=== PATIENT | male | born 1955 | race Caucasian/White ===

== ENCOUNTER 2024-08-08 12:09 | Emergency (ER) | payer MEDICARE, SELFPAY ==
[2024-08-08 12:13] VITALS: BP 161/57
--- NOTE | 2024-08-08 12:18 | ED.GENMED ---
History of Present Illness
General
Chief Complaint: Abdominal Pain
Time Seen by Provider: 08/08/24 12:17
History of Present Illness
History of Present Illness:
TIME OF INITIAL ENCOUNTER: 12:20 PM
HPI: Patient presents with left lower quadrant pain. He has had kidney stones in the past. The patient dropped his car off at a local car dealership and had some vague left lower quadrant pain at that time however since then, he had dramatically
lower quadrant/left flank pain. The pain apparently comes in waves. This feels somewhat similar to the time he had a kidney stone in the past. This been no fevers. Currently, his symptoms have improved. He did take an NSAID earlier in the day.
EXAM:
GENERAL: Well appearing in no distress
HEENT: Moist oral mucosa
CARDIOVASCULAR: No murmurs, normal heart rate, regular rhythm, No chest wall tenderness
PULMONARY: No respiratory distress, breath sounds are clear and equal
ABDOMEN: Soft with no peritoneal signs, minimal left lower quadrant tenderness, no significant CVA tenderness
NEUROLOGIC: Excellent strength all extremities, no coordination deficits
PSYCHIATRIC: Appropriate mental status, normal insight and judgement
EXTREMITIES: Nontender, no edema, moves all extremities equally
SKIN: No rash, no lesions
NUMBER AND COMPLEXITY OF PROBLEMS ADDRESSED AT THE ENCOUNTER
� Chronic conditions affecting care: Has had kidney stones in the past, mitral regurgitation
� Acute Exacerbation and/or Progression of Chronic Illness: This is an acute problem
� Differential Diagnosis includes: Ureteral stone/colic, diverticulitis, UTI/pyelonephritis
AMOUNT AND/OR COMPLEXITY OF DATA TO BE REVIEWED AND ANALYZED
� I performed an independent evaluation of and my interpretation is:
EKG:
CT: I personally viewed CT imaging and agree with radiologist interpretation that there is a 3 mm stone in the proximal left ureter associate with hydroureteronephrosis
X-rays:
Laboratory Studies: CBC unremarkable, chemistries unremarkable, urinalysis shows greater then 100 red cells per high-powered field
Other:
� Review of other/old records: No old records available for review in [facility]
� Clinical information was obtained by an independent historian: None needed
� Prescriptions/Medications Considered but not given:
� Further testing considered but not performed:
RISK OF COMPLICATIONS AND/OR MORBIDITY OR MORTALITY OF PATIENT MANAGEMENT
� Social determinants of health affecting care: Lives at home
� Discussion with other providers:
� Escalation of care including admission/observation vs risk of discharge considered: CT imaging shows a 3 mm stone in the proximal left ureter. The patient had been doing fairly well in the emergency department however at
approximately 1:45 PM just as I was going over his results, he had abrupt onset recurrence of his symptoms. He is now writhing in pain�will give Toradol, IV fluids, but he currently denies any nausea.
ANY OTHER UPDATES:
2:30 PM: The patient feels significantly improved and feels well enough to go home. Encouraged for him to follow-up with urology as an outpatient.
Phy Exam
Physical Exam
Physical Exam:
See HPI
Course
Orders/Labs/Results
Orders:
Orders
08/08/24 12:22
CT Abd/pel Without Iv Or Oral Urgent
Comment:
Reason For Exam: abrupt L abd/flank pain
08/08/24 12:29
Complete Blood Count/With Diff Urgent
Comprehensive Metabolic Panel Urgent
Urinalysis Reflex To Culture Urgent
Date Specimen was Collected: 08/08/24
Time Specimen was Collected: 12:26
Urine Microscopic Reflex Cult Urgent
08/08/24 13:48
0.9% Sodium Chloride 1000 ml [Nss] 1,000 ml IV BOLUS
Ketorolac [Toradol] 15 mg IV NOW STA
Abnormal Lab Results
08/08/24
12:29
Lymphocytes % 14.8 L %
(20.5-51.1)
BUN 25 H mg/dl
(9-20)
Glucose 108 H mg/dl
(70-99)
Total Bilirubin 2.1 H mg/dl
(0.2-1.3)
Urine Ketones 1+ A
(Negative)
Ur Occult Blood Reflex 4+ A
(Negative)
Urine RBC >100 A /HPF
(0-2)
08/08/24 12:29
08/08/24 12:29
Vital Signs
Initial and Last Documented VS:
Initial Vital Signs
Temp Pulse Resp BP Pulse Ox
36.4 C 52 16 161/57 99
08/08/24 12:13 08/08/24 12:13 08/08/24 12:13 08/08/24 12:13 08/08/24 12:13
Last Documented Vital Signs
Temp Pulse Resp BP Pulse Ox
36.4 C 52 16 143/36 94
08/08/24 12:13 08/08/24 12:13 08/08/24 12:13 08/08/24 14:00 08/08/24 14:45
*Critical Care Note
Total Time (30-74mins, 75-104mins- exclusive of procedures): Not Applicable
ED Attending Note
-
Portions of this chart may have been created with voice recognition software.� Occasional wrong word or��sound alike� substitutions may have occurred due to the inherent limitations of voice recognition software.
Discharge Plan
Departure
Patient Disposition: Home (Routine Discharge)
Date of Disposition: 08/08/24
Time of Disposition: 14:17
Patient with high blood pressure during this ER visit?: Yes
Discharge Problem:
Left ureteral stone
Instructions: Kidney Stones (DC)
Prescriptions:
New
oxycodone-acetaminophen [Percocet] 5-325 mg tablet
1 - 2 tab PO Q6HPRN PRN (Reason: pain) Qty: 14 0RF
ondansetron HCl 4 mg tablet
4 mg PO Q8H PRN (Reason: nausea and vomiting) Qty: 14 0RF
Referrals:
PRIVATE,PHYSICIAN [Family Provider] -
Galindo Rivera Jr., MD [Active] - Follow up in 2-3 days
Activity Restrictions/Additional Instructions:
You have a 3 mm stone in the upper portion of the left ureter. Based on the size, this should pass on its own. Currently, your kidney function is normal. Therefore you could continue taking [id number] ibuprofen/Advil/Motrin. I am sending a
prescription for narcotic analgesia to your pharmacy. If you do take the narcotic, consider taking something like MiraLAX to prevent constipation. The urinalysis shows blood in the urine but there is no sign of infection. CT also showed
diverticulosis at the sigmoid colon but no sign of diverticulitis (no sign of infection). I have given you the contact information for a local urologist to follow-up with, Dr. Rivera.
Interventions
Interventions:
*Risk Screen - Suicide Last Done: 08/08/24 12:13
*General Assessment Last Done: 08/08/24 12:13
*Neglect/Abuse Screening Last Done: 08/08/24 12:13
*ED COVID-19 Vaccine History Last Done: 08/08/24 12:13
*Nursing Disposition Last Done: 08/08/24 15:06
FE-Mwudxy-Rzzdivttlt Assessment Last Done: 08/08/24 12:31
Discharge Date and Time
Discharge Date/Time: 08/08/24 15:08
Print Language: IRAQI
[2024-08-08 12:22] VITALS: BMI 28.2
[2024-08-08 12:30] VITALS: BP 144/52
[2024-08-08 12:40] LABS: % Basophils 0.8 % (0-2); % Eosinophils 2.1 % (0-6); % Immature Granulocytes 0.4 % (0-0.5); % Lymphocytes 14.8 % (20.5-51.1); % Monocytes 7.3 % (1.7-9.3); % Neutrophils 74.6 % (42.2-75.2); Absolute Basophils 0.1 10^3/uL (0-0.2); Absolute Eosinophils 0.2 10^3/uL (0-0.7); Absolute Lymphocytes 1.2 10^3/uL (1.2-3.4); Absolute Monocytes 0.6 10^3/uL (0.1-0.6); Hematocrit 44.2 % (39.0-52.0); Hemoglobin 15.1 g/dL (13.0-18.0); Mean Corp Hgb Conc. 34.2 g/dL (33.0-37.0); Mean Corpuscular Hgb 30.6 pg (27.0-31.0); Mean Corpuscular Volume 89.5 fL (80.0-94.0); Mean Platelet Volume 9.9 fL (7.4-10.4); Nucleated Red Blood Cells % 0 % (-); Platelet Count 195 10^3/uL (130-400); Red Blood Cell Count 4.94 10^6/uL (4.70-6.10); Red Cell Dist. Width 11.9 % (11.5-14.5)
[2024-08-08 12:43] LABS: Urine Albumin Trace (Neg - Trace); Urine Bilirubin Negative (Negative); Urine Character Clear (Clear); Urine Color Yellow; Urine Glucose Negative (Negative); Urine Ketone 1+ (Negative); Urine Leukocyte Negative (Negative); Urine Nitrite Negative (Negative); Urine Occult Blood 4+ (Negative); Urine Specific Gravity 1.025 (<1.030); Urine Urobilinogen Negative (Neg - 1+)
[2024-08-08 12:50] LABS: ALT (SGPT) 28 U/L (0-50); AST (SGOT) 47 U/L (17-59); Alkaline Phosphatase 77 U/L (38-126); Blood Urea Nitrogen 25 mg/dl (9-20); Calcium 9.7 mg/dl (8.4-10.2); Carbon Dioxide 25 mmol/L (22-30); Chloride 102 mmol/L (98-107); Estimated Creatinine Clearance 57 ml/min; Glucose 108 mg/dl (70-99); Potassium 3.8 mmol/L (3.5-5.1); Sodium 138 mmol/L (135-145); Total Bilirubin 2.1 mg/dl (0.2-1.3); Total Protein 7.4 g/dl (6.3-8.2)
[2024-08-08 12:57] LABS: Urine Mucus Many
[2024-08-08 12:58] LABS: Urine Squamous Cell 0-2 /LPF (Few)
[2024-08-08 12:59] LABS: Urine Amorphous Seen
[2024-08-08 13:00] LABS: Urine Granular Cast 0-2 /LPF (0); Urine Hyaline Cast 0-2 /LPF (0-2)
[2024-08-08 13:02] LABS: Urine Red Blood Cell >100 /HPF (0-2); Urine White Cell 0-2 /HPF (0-5)
[2024-08-08 13:09] VITALS: BP 133/54
[2024-08-08] MEDS: TORADOL 15 MG IV (13:50)
[2024-08-08] MEDS: NSS 1000 IV (13:51)
[2024-08-08 14:00] VITALS: BP 143/36
== END 2024-08-08 15:08 | disposition home or self-care (01) ==
LOC: EMR 12:09
PROVIDERS: EMERGENCY PHYSICIAN Emergency Medicine
DX: N20.1 Calculus of ureter (principal); Z87.442 Personal history of urinary calculi
CPT/HCPCS: 99284; 74176; 80053; 81003; 81015; 85025